=== PATIENT | male | born 1970 | race American Indian/Alaskan Native ===

== ENCOUNTER 2017-05-22 17:42 | Emergency (ER) | payer SELFPAY ==
[2017-05-22 18:46] LABS: Basophils % (Auto) 0.8 % (0.0-1.8); Eosinophils # (Auto) 0.2 K/mm3 (0.0-0.4); Eosinophils % (Auto) 4.3 % (0.0-4.3); Hematocrit 43.5 % (35.5-45.6); Hemoglobin 14.4 gm/dl (11.8-15.2); Lymphocytes # (Auto) 1.7 K/mm3 (1.2-5.4); Lymphocytes % (Auto) 43.9 % (13.4-35.0); Mean Corpuscular HGB Conc 33 % (32-34); Mean Corpuscular Hemoglobin 27 pg (28-32); Mean Corpuscular Volume 82 fl (84-94); Monocytes # (Auto) 0.3 K/mm3 (0.0-0.8); Monocytes % (Auto) 8.9 % (0.0-7.3); Platelet Count 226 K/mm3 (140-440); Red Cell Distribution Width 13.6 % (13.2-15.2)
[2017-05-22 19:10] LABS: BUN/Creatinine Ratio 12; Blood Urea Nitrogen 11 mg/dL (9-20); Hemolysis Index 13
[2017-05-22 22:46] LABS: Bilirubin,Urine NEG (Negative); Blood,Urine MOD (Negative); Color,Urine Straw (Yellow); Urobilinogen,Urine < 2.0 mg/dL (<2.0)
--- NOTE | 2017-05-22 23:51 | Emergency Department Report ---
HPI - General Chief Complaint: Urogenital-Male Time Seen by Provider: 05/22/17 23:33 - HPI HPI: Room 24 The patient is a 46-year-old male presented with a chief complaint of hematuria. The patient states yesterday he noticed dysuria but did not pay attention to his urine. Patient states this morning he had 3 episodes of initial hematuria. Patient denies penile discharge. Patient denies fever. Patient states the past 2-3 months occasion when standing in one position for long period of time he developed bilateral back pain Location: [See above] Duration: [See above] Quality: Dysuria Severity: Moderate Modifying factors: [see above] Context: [see above] Mode of transportation: [not driving] ED Past Medical Hx - Past Medical History Hx Diabetes: Yes Additional medical history: Hyperlipidemia, peripheral neuropathy - Surgical History Past Surgical History?: No - Family History Family history: no significant - Social History Smoking Status: Former Smoker (none 20 years) Substance Use Type: None (denies illicit drug use), Alcohol (sixpack daily) - Medications Home Medications: Home Medications Medication Instructions Recorded Confirmed Last Taken Type AtorvaSTATin [Lipitor] 10 mg PO QHS 05/22/17 05/22/17 05/22/17 History glipiZIDE [Glipizide] 5 mg PO DAILY 05/22/17 05/22/17 05/22/17 History metFORMIN [Glucophage] 1,000 mg PO BID 05/22/17 05/22/17 05/22/17 History Sulfamethoxazole/Trimethoprim 1 each PO BID #14 tablet 05/23/17 Unknown Rx [Bactrim DS TAB] ED Review of Systems ROS: Stated complaint: BLOOD IN URINE Other details as noted in HPI Constitutional: denies: fever Gastrointestinal: denies: abdominal pain Genitourinary: dysuria, hematuria. denies: discharge Musculoskeletal: back pain, myalgia Physical Exam - Physical Exam Vital Signs: Vital Signs 05/22/17 05/22/17 05/22/17 17:52 23:24 23:26 Temperature 97.6 F Pulse Rate 111 H 94 H 91 H Respiratory 15 19 Rate Blood Pressure 173/111 155/90 Blood Pressure [Right] O2 Sat by Pulse 98 99 Oximetry 05/22/17 05/22/17 23:30 23:33 Temperature 98.0 F Pulse Rate 97 H Respiratory 20 20 Rate Blood Pressure Blood Pressure 155/90 [Right] O2 Sat by Pulse 98 98 Oximetry Physical Exam: GENERAL: The patient is well-developed well-nourished male lying on stretcher not appearing to be in acute distress. [] HEENT: Normocephalic. Atraumatic. Extraocular motions are intact. Patient has moist mucous membranes. NECK: Supple. Trachea midline CHEST/LUNGS: Clear to auscultation. There is no respiratory distress noted. HEART/CARDIOVASCULAR: Regular. There is no tachycardia. There is no gallop rub or murmur. ABDOMEN: Abdomen is soft, nontender. Patient has normal bowel sounds. There is no abdominal distention. SKIN: There is no rash. There is no edema. There is no diaphoresis. NEURO: The patient is awake, alert, and oriented. The patient is cooperative. The patient has normal speech MUSCULOSKELETAL: There is no evidence of acute injury. ED Course Vital Signs 05/22/17 05/22/17 05/22/17 17:52 23:24 23:26 Temperature 97.6 F Pulse Rate 111 H 94 H 91 H Respiratory 15 19 Rate Blood Pressure 173/111 155/90 Blood Pressure [Right] O2 Sat by Pulse 98 99 Oximetry 05/22/17 05/22/17 23:30 23:33 Temperature 98.0 F Pulse Rate 97 H Respiratory 20 20 Rate Blood Pressure Blood Pressure 155/90 [Right] O2 Sat by Pulse 98 98 Oximetry ED Medical Decision Making - Lab Data Result diagrams: 05/22/17 18:33 05/22/17 18:33 Laboratory Tests 05/22/17 05/22/17 05/22/17 17:54 18:33 18:33 WBC 3.8 L RBC 5.30 H Hgb 14.4 Hct 43.5 MCV 82 L MCH 27 L MCHC 33 RDW 13.6 Plt Count 226 Lymph % (Auto) 43.9 H [place] % (Auto) 8.9 H Eos % (Auto) 4.3 Baso % (Auto) 0.8 Lymph # 1.7 [place] # 0.3 Eos # 0.2 Baso # 0.0 Seg Neutrophils % 42.1 Seg Neutrophils # 1.6 L Sodium 137 Potassium 4.3 Chloride 95.9 L Carbon Dioxide 25 Anion Gap 20 BUN 11 Creatinine 0.9 Estimated GFR > 60 BUN/Creatinine Ratio 12 Glucose 197 H POC Glucose 196 H Calcium 10.0 Total Creatine Kinase Urine Color Urine Turbidity Urine pH Ur Specific [place] Urine Protein Urine Glucose (UA) Urine Ketones Urine Blood Urine Nitrite Urine Bilirubin Urine Urobilinogen Ur Leukocyte Esterase Urine WBC (Auto) Urine RBC (Auto) U Epithel Cells (Auto) 05/22/17 05/22/17 18:33 22:28 WBC RBC Hgb Hct MCV MCH MCHC RDW Plt Count Lymph % (Auto) [place] % (Auto) Eos % (Auto) Baso % (Auto) Lymph # [place] # Eos # Baso # Seg Neutrophils % Seg Neutrophils # Sodium Potassium Chloride Carbon Dioxide Anion Gap BUN Creatinine Estimated GFR BUN/Creatinine Ratio Glucose POC Glucose Calcium Total Creatine Kinase 84 Urine Color Straw Urine Turbidity Clear Urine pH 6.0 Ur Specific [place] 1.005 Urine Protein 30 mg/dl Urine Glucose (UA) 150 Urine Ketones Neg Urine Blood Mod Urine Nitrite Neg Urine Bilirubin Neg Urine Urobilinogen < 2.0 Ur Leukocyte Esterase Neg Urine WBC (Auto) 1.0 Urine RBC (Auto) 1.0 U Epithel Cells (Auto) < 1.0 - EKG Data -: EKG Interpreted by Ri EKG shows normal: sinus rhythm Rate: normal - EKG Data When compared to previous EKG there are: previous EKG unavailable Interpretation: other (no ischemic changes seen) - Radiology Data Radiology results: report reviewed (CT abdomen and pelvis), image reviewed (CT abdomen and pelvis) CT abdomen and pelvis (regular radiologist)- no radial opaque urinary tract calculi or evidence of urinary tract obstruction. No discrete renal mass seen on these unenhanced images. No abnormal wall thickening or filling defect seen in the unopacified urinary bladder. - Differential Diagnosis UTI, urethritis, bladder mass, renal mass, renal colic, rhabdomyolysis Critical care attestation.: If time is entered above; I have spent that time in minutes in the direct care of this critically ill patient, excluding procedure time. ED Disposition Clinical Impression: Hematuria of undiagnosed cause, Dysuria, Proteinuria Disposition: TO HOME OR SELFCARE Is pt being admited?: No Does the pt Need Aspirin: No Condition: Stable Instructions: Acute Hematuria (ED) Additional Instructions: Return to the emergency department immediately should you develop worsening symptoms, fever, inability to tolerate food or liquid or any other concerns. Prescriptions: Sulfamethoxazole/Trimethoprim [Bactrim DS TAB] 1 each PO BID #14 tablet Referrals: ANNEMARIE RAY MD [Staff Physician] - [facility] (Dr. Ray is a urologist. Please follow up with him for further evaluation) Time of Disposition: 00:59
--- NOTE | 2017-05-23 00:58 | Cat Scan Report ---
FINAL REPORT EXAM: CT ABDOMEN PELVIS W/O CONTRAST HISTORY: Hematuria. TECHNIQUE: Unenhanced axial CT images of the abdomen and pelvis were obtained, with coronal and sagittal reformatted images. No prior studies are available for comparison. FINDINGS: The unenhanced liver, biliary tree, gallbladder, pancreas, spleen, and adrenal glands are unremarkable. The unenhanced kidneys demonstrate no discrete renal lesions. There are no radiopaque urinary tract calculi or evidence of urinary tract obstruction. The distended unopacified urinary bladder demonstrates no abnormal wall thickening or filling defect. The prostate gland is normal in size. Evaluation of the bowel is limited due to lack of oral contrast. There is residual stool in the colon. There is no intestinal obstruction or free air. Of note, the appendix is normal. The abdominal aorta is normal in caliber. There is no pathologic abdominal or pelvic lymphadenopathy. There is no free or loculated fluid collection. Mild spondylotic changes are seen in the spine. There is a mild thoracic dextroscoliosis. There is mild compressive atelectasis in the posteromedial right lung base, related to adjacent paraspinal osteophytes. IMPRESSION: 1. No radiopaque urinary tract calculi or evidence of urinary tract obstruction. No discrete renal mass seen on these unenhanced images. 2. No abnormal wall thickening or filling defect seen in the unopacified urinary bladder.
[2017-05-23 01:07] VITALS: BP 146/85
== END 2017-05-23 01:01 | disposition home or self-care (01) ==
LOC: ED 17:42
DX: R31.9 Hematuria, unspecified (principal); R80.9 Proteinuria, unspecified; R30.0 Dysuria; E78.5 Hyperlipidemia, unspecified; E11.40 Type 2 diabetes mellitus with diabetic neuropathy, unspecified; Z87.891 Personal history of nicotine dependence
CPT/HCPCS: 36415; 74176; 80048; 81001; 82550; 82962; 85025; 93005; 93010; 99284